=== PATIENT | male | born 1950 | race Caucasian/White ===

== ENCOUNTER 2023-03-24 04:33 | Day surgery (SDC) | payer OTHER, BC ==
[2023-03-22 15:38] VITALS: BMI 29.8
[2023-03-24 08:33] VITALS: TEMP 97.8
[2023-03-24 08:43] VITALS: PULSE 76
[2023-03-24 09:12] VITALS: BP 123/63; RESP 17
== END 2023-03-24 09:20 | disposition home or self-care (01) ==
LOC: JASU-ENDO 04:33
PROVIDERS: ATTEND Internal Medicine Gastroenterology
PROC: 0DBL8ZX Excision of Transverse Colon, Via Natural or Artificial Opening Endoscopic, Diagnostic (ICD-10-PCS; 2023-03-24)
PROC: 0DBN8ZX Excision of Sigmoid Colon, Via Natural or Artificial Opening Endoscopic, Diagnostic (ICD-10-PCS; principal; 2023-03-24 08:00)
DX: Z12.11 Encounter for screening for malignant neoplasm of colon (principal); D12.5 Benign neoplasm of sigmoid colon; D12.3 Benign neoplasm of transverse colon; K57.30 Diverticulosis of large intestine without perforation or abscess without bleeding; Z86.010 Personal history of colon polyps; Z80.0 Family history of malignant neoplasm of digestive organs
CPT/HCPCS: 88305-TC

== ENCOUNTER 2023-10-20 04:26 | Day surgery (SDC) | payer OTHER, BC ==
[2023-10-17 16:02] VITALS: BMI 28.5
[2023-10-20 10:56] VITALS: BP 135/69; PULSE 64; RESP 18; TEMP 98
== END 2023-10-20 10:55 | disposition home or self-care (01) ==
LOC: JASU-ENDO 04:26
PROVIDERS: ATTEND Internal Medicine Gastroenterology
PROC: 0DB78ZX Excision of Stomach, Pylorus, Via Natural or Artificial Opening Endoscopic, Diagnostic (ICD-10-PCS; 2023-10-20)
PROC: 0DB68ZX Excision of Stomach, Via Natural or Artificial Opening Endoscopic, Diagnostic (ICD-10-PCS; 2023-10-20)
PROC: 0DB98ZX Excision of Duodenum, Via Natural or Artificial Opening Endoscopic, Diagnostic (ICD-10-PCS; principal; 2023-10-20 10:00)
DX: K29.50 Unspecified chronic gastritis without bleeding (principal); K29.80 Duodenitis without bleeding; K31.89 Other diseases of stomach and duodenum; Z87.11 Personal history of peptic ulcer disease
CPT/HCPCS: 88305-TC; 88341-TC; 88342-TC

== ENCOUNTER 2024-01-21 08:11 | Emergency (ER) | payer BC, OTHER ==
[2024-01-21 08:37] VITALS: BP 147/78; PULSE 85; RESP 18; TEMP 98; BMI 28.2
[2024-01-21] MEDS ORDERED: valACYclovir HCL 500 MG TABLET (FP) ONE (08:46)
[2024-01-21] MEDS: valACYclovir HCL 500 MG TABLET (FP) PO ONE (08:59)
[2024-01-21] MEDS ORDERED: FLUORESCEIN NA 1 EA STRIP ONE (09:37)
[2024-01-21] MEDS ORDERED: TETRACAINE 0.5% OPHTH SOLN 2 ML BOTTLE ONE (09:37)
[2024-01-21] MEDS: TETRACAINE 0.5% HCL 0.6ML DROPPER.BOTTLE OD ONE (09:52)
[2024-01-21] MEDS: FLUORESCEIN NA 1 EA STRIP OD ONE (09:52)
== END 2024-01-21 10:59 | disposition home or self-care (01) ==
LOC: JER 08:11
DX: R21 Rash and other nonspecific skin eruption (principal); H92.02 Otalgia, left ear; L29.9 Pruritus, unspecified; B02.30 Zoster ocular disease, unspecified
CPT/HCPCS: 99283-25